=== PATIENT | female | born 1985 | race Caucasian/White ===

== ENCOUNTER 2018-09-27 08:34 | Emergency (ER) | payer OTHER ==
[~2018-09-27] VITALS: Ht 165.1 cm; Wt 75.7 kg
[2018-09-27 08:36] VITALS: BP 131/84
[2018-09-27] MEDS ORDERED: KETOROLAC 30 MG/1 ML ONE (08:50)
[2018-09-27] MEDS ORDERED: KETOROLAC 30 MG/1 ML IM ONE (09:00)
--- NOTE | 2018-09-27 10:09 | NUR ---
Patient given wound care, discharge instructions and Rx, they have confirmed that they understand the instructions. Patient ambulatory with steady gait.
== END 2018-09-27 10:10 | disposition home or self-care (01) ==
LOC: ED 10:04
DX: T22.231A Burn of second degree of right upper arm, initial encounter (principal); T22.221A Burn of second degree of right elbow, initial encounter; T22.211A Burn of second degree of right forearm, initial encounter; T31.0 Burns involving less than 10% of body surface; X12.XXXA Contact with other hot fluids, initial encounter; Y93.89 Activity, other specified; Y92.69 Other specified industrial and construction area as the place of occurrence of the external cause; Y99.0 Civilian activity done for income or pay
CPT/HCPCS: 16000; 96372; 99284; J1885; 99283

== ENCOUNTER 2018-12-01 20:00 | Emergency (ER) | payer OTHER ==
[~2018-12-01] VITALS: Ht 170.2 cm; Wt 77.4 kg
[2018-12-01 20:49] LABS: BASOPHILS # (AUTO) 0.03 x10^3/uL (0-0.1); BASOPHILS % (AUTO) 0 % (0-1); EOSINOPHILS # (AUTO) 0.14 x10^3/uL (0-0.4); EOSINOPHILS % (AUTO) 2 % (1-7); LYMPHOCYTES # (AUTO) 2.21 x10^3/uL (1-3.4); LYMPHOCYTES % (AUTO) 30 % (22-44); MD NO; MEAN CORPUSCULAR HEMOGLOBIN 29.9 pg (27.0-34.8); MEAN CORPUSCULAR HGB CONC 33.5 g/dL (32.4-35.8); MEAN CORPUSCULAR VOLUME 89.3 fL (80-100); MEAN PLATELET VOLUME 7.8 fL (7.4-10.4); MONOCYTES # (AUTO) 0.67 x10^3/uL (0.2-0.8); MONOCYTES % (AUTO) 9 % (2-9); NEUTROPHILS # (AUTO) 4.34 x10^3/uL (1.8-6.8); NEUTROPHILS % (AUTO) 59 % (42-75); PLATELET COUNT 352 x10^3/uL (130-400); RED BLOOD COUNT 4.38 x10^6/uL (3.82-5.3); RED CELL DISTRIBUTION WIDTH 13.7 % (9.6-15.2)
[2018-12-01 21:01] LABS: ALANINE AMINOTRANSFERASE 32 U/L (12-78); ALBUMIN 3.9 g/dL (3.4-5.0); ANION GAP 5 mmol/L (5-15); CALCIUM 8.6 mg/dL (8.5-10.1); CHLORIDE 109 mmol/L (98-107); CREATININE 1.14 mg/dL (0.55-1.02)
[2018-12-01 21:06] LABS: ALKALINE PHOSPHATASE 96 U/L (45-117); BILIRUBIN,TOTAL 0.2 mg/dL (0.2-1.0); TOTAL PROTEIN 7.4 g/dL (6.4-8.2)
[2018-12-01 22:55] VITALS: BP 109/69
--- NOTE | 2018-12-01 23:47 | NUR ---
PT TO ROOM FROM LOBBY
[2018-12-02] MEDS ORDERED: IBUPROFEN 800 MG TABLET PO ONE (00:30)
[2018-12-02] MEDS ORDERED: IBUPROFEN 800 MG TABLET ONE (00:38)
== END 2018-12-02 00:46 | disposition home or self-care (01) ==
LOC: ED 12-02 00:15
DX: R07.89 Other chest pain (principal); R09.1 Pleurisy; F41.1 Generalized anxiety disorder; F32.9 Major depressive disorder, single episode, unspecified
CPT/HCPCS: 36415; 71046; 80053; 85025; 93005; 99284

== ENCOUNTER 2020-05-14 13:23 | Emergency (ER) | payer OTHER ==
[~2020-05-14] VITALS: Ht 165.1 cm; Wt 81.8 kg
[2020-05-14 13:47] VITALS: BP 111/74
--- NOTE | 2020-05-14 14:15 | NUR ---
UA SENT TO LAB
[2020-05-14 14:35] LABS: MICROSCOPIC INDICATED
--- NOTE | 2020-05-14 14:36 | NUR ---
LAB CALLED TO EXPIDITE UA RESULT
[2020-05-14] MEDS ORDERED: CEFDINIR 300 MG CAPSULE PO ONE (15:00)
[2020-05-14] MEDS ORDERED: PHENAZOPYRIDINE 200 MG TABLET PO ONE (15:00)
[2020-05-14] MEDS ORDERED: CEFDINIR 300 MG CAPSULE ONE (15:04)
[2020-05-14] MEDS ORDERED: PHENAZOPYRIDINE 200 MG TABLET ONE (15:04)
== END 2020-05-14 15:35 | disposition home or self-care (01) ==
LOC: ED 14:09
DX: N30.01 Acute cystitis with hematuria (principal); R30.0 Dysuria
CPT/HCPCS: 81001; 87077; 87086; 87186; 99283

== ENCOUNTER → 2021-03-12 | Outpatient (CLI) | payer OTHER | END | disposition home or self-care (01) | LOC: LAB 16:23 | PROVIDERS: ATTEND Obstetrics & Gynecology | DX: N92.6 Irregular menstruation, unspecified (principal) | CPT/HCPCS: 36415; 84702 ==